=== PATIENT | male | born 1995 | race Caucasian/White ===

== ENCOUNTER → 2018-04-18 | Outpatient (CLI) | payer OTHER | LOC: M LRY 14:34 | DX: S52.571A Other intraarticular fracture of lower end of right radius, initial encounter for closed fracture (principal); X58.XXXA Exposure to other specified factors, initial encounter; Y92.9 Unspecified place or not applicable | CPT/HCPCS: 73090 ==

== ENCOUNTER → 2019-04-11 | Outpatient (CLI) | payer MEDICAID, OTHER ==
[~2019-04-11] MED LIST: FLOV250A2 INH; PROAAER10 INH; XARE20TA PO
--- NOTE | 2019-04-11 15:00 | REP ---
PET/CT: HISTORY: Pulmonary nodule in the left lower lobe, 2.7 cm in greatest diameter. COMPARISONS: Comparison CT study [facility] February 13, 2019. TECHNIQUE: 52 minutes following the intravenous injection of a 8.37 mCi dose of F-18 FDG, three-dimensional PET scintigraphy is acquired from the skull base to the proximal thighs. Triplanar noncontrast CT scanning is acquired through the same anatomic range for attenuation correction, and image registration with scan parameters optimized to minimize radiation exposure to the patient. PET scintigraphy and CT datasets were fused and displayed on a workstation with multiplanar and projection display capability. PET/CT FINDINGS: There are nodular opacities again noted in the left lower lobe similar in configuration but decreased in size when compared with the CT study from [facility] dated February 13, 2019. Only one of these opacities shows minimally hypermetabolic uptake. This opacity measures 16 mm in greatest diameter today, previously 27 mm. Its maximum standard uptake value is 2.31. The other nodular density seen in the left lower lobe on CT are not hypermetabolic, maximum standard uptake value 1.33 and 1.70. There is a very small nodular opacity with maximum standard uptake value 0.59. There is no hilar or mediastinal hypermetabolic uptake. Head and neck soft tissues are unremarkable. No abnormal uptake is seen in the abdomen or pelvis. IMPRESSION: The nodular opacities in the left lower lobe show morphologic improvement since the February 13, 2019 prior study although they are not resolved. One of these shows mildly hypermetabolic uptake, maximum SUV value 2.31. Electronically Signed by Shukri Bazzi MD 04/11/2019 04:16 P
== END ==
LOC: M PLARAD 07:31
PROVIDERS: ATTEND Internal Medicine Medical Oncology
DX: R91.8 Other nonspecific abnormal finding of lung field (principal)
CPT/HCPCS: 78815; A9552

== ENCOUNTER → 2021-01-27 | Outpatient (CLI) | payer OTHER ==
[~2021-01-27] MED LIST changes: +ISOVUE-370 76% 100ML VIAL As Ordered ONE
--- NOTE | 2021-02-01 20:30 | REP ---
INDICATION: ABNORMAL FINDING OF LUNG FIELD COMPARISON: 02/13/2019 TECHNIQUE: Axial contrast enhanced images from the thoracic inlet to the upper abdomen with coronal and sagittal reformations using 75 ml Isovue 370 intravenous contrast material. This CT examination was performed using the following dose reduction techniques: Automated exposure control, adjustment of mA and/or kv according to the patient's size, and use of iterative reconstruction technique. FINDINGS: Few nodular lesions in the left lower lobe demonstrate punctate central calcifications suggesting progressive granulomatous changes. Mild residual chronic linear fibro atelectatic changes at the lingula and left lower lobe are also identified and findings appear relatively improved as compared with prior examination dated 02/13/2019. Remainder of the lung hunter are well aerated and no new acute consolidation, suspicious nodule, or mass lesion is appreciated. No effusion. No pneumothorax. No significant adenopathy. Mediastinum demonstrates normal thoracic aorta, pulmonary vasculature, and heart/pericardium surrounding musculoskeletal structures are intact. IMPRESSION: Findings involving the left base likely represent sequelae of prior granulomatous disease. No new acute mediastinal or pleuroparenchymal process appreciated. <Electronically signed by Dakota Cruz > 02/01/212026
== END ==
LOC: M RAD 16:36
PROVIDERS: ATTEND Internal Medicine
DX: R91.8 Other nonspecific abnormal finding of lung field (principal)
CPT/HCPCS: 71260; Q9967

== ENCOUNTER 2024-10-17 10:22 | Emergency (ER) | payer OTHER ==
[~2024-10-17] VITALS: Ht 175.3 cm; Wt 111.8 kg
[~2024-10-17 10:22] MED LIST changes: +FLOV250A INH; -FLOV250A2 INH; -ISOVUE-370 76% 100ML VIAL As Ordered ONE
[2024-10-17] MEDS ORDERED: FLUT1BLS8 (10:52)
[2024-10-17 12:39] VITALS: BP 134/90; TEMP 98.6; O2SAT 96
== END 2024-10-17 12:41 | disposition home or self-care (01) ==
LOC: M ED 10:22
DX: B34.8 Other viral infections of unspecified site (principal); J45.909 Unspecified asthma, uncomplicated; F17.200 Nicotine dependence, unspecified, uncomplicated; Z86.711 Personal history of pulmonary embolism; Z79.52 Long term (current) use of systemic steroids; Z79.899 Other long term (current) drug therapy

== ENCOUNTER 2025-07-31 08:53 | Emergency (ER) | payer OTHER ==
[~2025-07-31] VITALS: Ht 176.5 cm; Wt 111.0 kg
[~2025-07-31 08:53] MED LIST changes: +FLUT1BLS8
[2025-07-31] MEDS: NEOSPORIN OINT 0.9 GM PKT TOP ONE (10:10)
[2025-07-31] MEDS: LIDOCAINE W/EPINEPHrine 1% 20 ML VIAL SC ONE (10:10)
[2025-07-31 10:30] VITALS: BP 118/56
[2025-07-31] MEDS ORDERED: CEPH500T PO (10:37)
[2025-07-31] MEDS ORDERED: BACI500O8 TOP (10:37)
[2025-07-31 10:38] VITALS: O2SAT 99
[2025-07-31 10:45] VITALS: TEMP 98.5
== END 2025-07-31 10:48 | disposition home or self-care (01) ==
LOC: M ED 08:53
DX: S61.511A Laceration without foreign body of right wrist, initial encounter (principal); W26.8XXA Contact with other sharp object(s), not elsewhere classified, initial encounter; F17.200 Nicotine dependence, unspecified, uncomplicated; Y92.89 Other specified places as the place of occurrence of the external cause; Y93.89 Activity, other specified; Y99.0 Civilian activity done for income or pay; Z79.2 Long term (current) use of antibiotics; Z79.899 Other long term (current) drug therapy